=== PATIENT | male | born 1955 | race Caucasian/White ===

== ENCOUNTER 2023-08-12 10:36 | Emergency (ER) | payer MEDICARE, SELFPAY ==
[2023-08-12 10:45] VITALS: BP 144/70; PULSE 63; RESP 16; TEMP 36.3; O2SAT 98; BMI 23.1
--- NOTE | 2023-08-12 11:12 | ED.SKABFB ---
HPI - Skin/Abscess/Foreign Bdy General Chief complaint: Skin/Abscess/Foreign Body Stated complaint: back pain Time Seen by Provider: 08/12/23 11:04 Source: patient Mode of arrival: Ambulatory Limitations: no limitations History of Present Illness HPI narrative: Patient is an otherwise healthy. Is here for evaluation of redness and rash to his right flank region. The rash started within the past 12 hours. He started to have discomfort within the past 24-36 hours. No fevers. Related Data Previous Rx's Medication Instructions Recorded acyclovir 800 mg tablet 800 mg PO 5XD 10 days #50 tabs 08/12/23 hydrocodone 5 mg-acetaminophen 325 1 tab PO Q4-6H PRN pain #10 tabs 08/12/23 mg tablet Review of Systems Constitutional Constitutional: Reports system reviewed and no additional complaints, except as documented Musculoskeletal Musculoskeletal: Reports system reviewed and no additional complaints, except as documented Integumentary/Breasts Skin/Breast: Reports system reviewed and no additional complaints, except as documented Neurologic Neurologic: Reports system reviewed and no additional complaints, except as documented Exam Initial Vital Signs Initial Vital Signs: Vital Signs Temperature 97.4 F L 08/12/23 10:45 Pulse Rate 63 08/12/23 10:45 Respiratory Rate 16 08/12/23 10:45 Blood Pressure 144/70 H 08/12/23 10:45 Pulse Oximetry 98 08/12/23 10:45 Oxygen Delivery Method Room Air 08/12/23 10:45 HENMT Head: normal to inspection and normocephalic Skin Other: Patient with rash on his lower back and right flank that is consistent with shingles. Does have some erythema and then also clumping of vesicles. Neuro General: patient alert and patient awake Course Vital Signs Vital signs: Vital Signs - 8 hr 08/12/23 10:45 Temperature 97.4 F L Pulse Rate 63 Respiratory Rate 16 Blood Pressure 144/70 H Pulse Oximetry 98 Oxygen Delivery Method Room Air MDM - Skin/Abscess/Foreign Bdy MDM Narrative Medical decision making narrative: History and physical today is consistent with zoster. Does not appear to be a superinfection. Symptoms started within the past 36 hours. Will treat with acyclovir. He was given return precautions and follow-up instructions. He expressed understanding and agreement. Discharge Plan Departure Patient Disposition: Home Clinical Impression: Shingles Instructions: DI for Shingles Activity Restrictions/Additional Instructions: I do recommend that you continue to take all of your medications as directed. Take the new medications that you were prescribed today as directed. Be sure that you are keeping the rash covered like we discussed into your no longer forming new blisters. Contact your primary doctor for a follow-up. Return to the emergency department for new symptoms. Prescriptions: New acyclovir 800 mg tablet 800 mg PO 5XD 10 Days Qty: 50 0RF Rx Instructions: space evenly during waking hours hydrocodone-acetaminophen 5-325 mg tablet 1 tab PO Q4-6H PRN (Reason: pain) Qty: 10 0RF Stand Alone Forms: Patient Portal/API
== END 2023-08-12 11:21 | disposition home or self-care (01) ==
PROVIDERS: Emergency Provider Emergency Medicine
DX: B02.9 Zoster without complications (principal)
CPT/HCPCS: 99281; 99283

== ENCOUNTER → 2024-10-20 15:19 | Outpatient (CLI) | payer MEDICARE, SELFPAY ==
--- NOTE | 2024-10-20 15:22 | DI.RAD.S_ITS ---
PROCEDURE: XR CERVICAL SPINE 2V OR 3V INDICATIONS: Cervicalgia TECHNIQUE: 3 view(s) of the cervical spine were acquired. COMPARISON: None. FINDINGS: Bones: No fractures or dislocations to the T1 level. The lateral masses of C1 appear intact on the odontoid view. There is mild C5-6 intervertebral disc space loss with associated anterior osteophytosis. No suspicious bony lesions. Soft tissues: No prevertebral soft tissue swelling. IMPRESSION: Mild degenerative change, most notably at the C5-6 level, without evidence of acute osseous abnormality. Dictated by: Rodolfo Douglass M.D. on 10/20/2024 at 23:06 Approved by: Rodolfo Douglass M.D. on 10/20/2024 at 23:07
== END ==
PROVIDERS: PCP Family Medicine; Referring Provider Family Medicine; Visit Provider Family Medicine
DX: M54.2 Cervicalgia (principal); M47.812 Spondylosis without myelopathy or radiculopathy, cervical region
CPT/HCPCS: 72040

== ENCOUNTER 2025-03-31 06:03 | Day surgery (SDC) | payer MEDICARE, SELFPAY ==
[2025-03-26 08:32] VITALS: BMI 21.7
[2025-03-31] VITALS (16 sets, daily range): BP systolic 110–156; BP diastolic 55–80; PULSE 57–97; RESP 12–20; TEMP 36.1–36.7; O2SAT 94–99; BMI 21.5
--- NOTE | 2025-03-31 | PATH_ITS ---
[facility] Accession Number: [id number] No. of containers..01 Tissue . 01 Material submitted: . prostate - PROSTATE CHIPS . 01 Diagnosis: PROSTATE CHIPS, (7 GRAMS), TRANSURETHRAL RESECTION: Benign prostatic hyperplasia. Negative for invasive malignancy. [facility] [place] 1100 Local . 01 Electronically signed: . Rita Brown DO, Pathologist NPI- [id number] . 01 Gross description: . Received in formalin with two identifiers and prostate chips, are multiple mccall soft tissue fragments admixed with a moderate amount of hemorrhagic material weighing 7 grams and aggregating to 5.5 x 5.3 x 1.5 cm. Submitted entirely in cassettes A1-A5. ([id number]) /BRIGIDO 04/09/2025 1048 Local . 01 Pathologist provided ICD-10: N40.1 . 01 CPT . 420695 Specimen Comment: A courtesy copy of this report has been sent to [facility] Performed at: [address] [address], [place], [place] [id number] MD John Henry MD Phone: [phone]
[2025-03-31] MEDS: LACTATED RINGERS 1,000 ML 21 ML IV ×2 (06:58→09:02)
--- NOTE | 2025-03-31 07:36 | PM.PREOP ---
Pre-operative Note COVID-19 COVID-19 status: Not tested Interval Note History & Physical reviewed/Exam performed by Physician: Yes Changes to H&P: No
[2025-03-31] MEDS: levoFLOXacin 500 MG/100 ML PIGGYBACK 100 MG IV (07:51)
--- NOTE | 2025-03-31 08:16 | SUR.OPER ---
Lithotomy on padded OR bed, head on pillow, arms secured on padded arm boards at <90 degrees abduction. Legs secured in padded yellow fins stirrups.
[2025-03-31] MEDS: FLEETS ENEMA 2 EACH PR (08:42)
--- NOTE | 2025-03-31 09:55 | P.OP_ITS ---
Operative Date/Time/Diagnoses Date of procedure: 03/31/25 Time of procedure: 08:00 Pre-op diagnosis: Benign prostatic hyperplasia with lower urinary tract symptoms, urinary retention Post-op diagnosis: same Procedure & Clinicians Procedure: Cystoscopy Aquablation Same procedure(s) as scheduled: Yes Indications: 69 y/o M noted to have urinary retention that is currently managed with CIC four times per day following placement of a bates catheter with nearly 3L of clear yellow urine drainage. Discussed treatment options moving forward to include placement of a bates catheter with voiding trials every month, continuing with CIC and attempts at volitional voiding between each catheterization, placement of a SPT (not recommended until we establish that he is not able to void spontaneously for several months) or standard treatments of BPH. Discussed a trial of alpha blockers. Discussed mechanism of action and expected side effects to include orthostatic hypotension, nasal congestion and retrograde ejaculation. Also discussed the possible addition of Finasteride 5mg daily (discussed possible side effects to include decreased libido, worsening erectile dysfunction, loss of ejaculate volume as well as painful breast development or nipple tenderness), or a lower urinary tract evaluation prior to a bladder outlet procedure. His cystoscopy and TRUS prostate were notable for coaptating lateral prostatic lobes w/o an intravesical median lobe and a TRUS volume of 58 cc. He was unable to perform a Uroflow/PVR secondary to continued urinary retention. Discussed that he otherwise would be a candidate for Aquablation. Discussed risks of the procedure to include but not limited to pain, bleeding, infection, injury to urethra/bladder/either ureteral orifice, clot retention, irritative voiding symptoms for several months following the procedure, urinary incontinence, erectile dysfunction, retrograde ejaculation, need for open emergent repair of any bladder or ureteral injuries, urethral stricture or bladder neck contracture development, need for repeat procedures. Surgeon: Clive Shah Click Yes if Unassisted: Yes Anesthesia Type: General Operative Notes Findings: Coaptating lateral prostatic lobes, no intravesical median lobe Closure Type: not applicable Specimen(s): other (prostate chips) Applied: catheter Estimated Blood Loss (mL): 50 Blood products transfused: none Procedure in detail: After informed consent was obtained, the patient was identified brought to the operating room where he was placed in his supine position on the table.? Once there anesthesia was induced and maintained.? Ensuring an adequate level of anesthesia the patient was transitioned to the lithotomy position where after time-out he was prepped.? After prepping, ensuring an adequate level of anesthesia, administration IV antibiotics and time-out 60 cc of ultrasound gel was instilled within the rectum and the ultrasound probe which had been attached to the TRUS stepper which was attached to the TRUS stepper articulating arm which was secured to the bed was advanced into the rectum under direct vision via the ultrasound.? The ultrasound probe was then aligned and confirmation made that the prostate was centered and aligned in both the sagittal and transverse views.? The bladder neck, verumontanum, central and transitional zones were identified.? With the ultrasound in place and adjusted the patient was then d raped in a sterile fashion. With the patient draped the 24 Guyanese aqua beam handpiece was then inserted through the urethra and advanced into the bladder.? Cystoscopy was then performed and no concerning bladder mass or lesions were noted.? Bilateral ureteral orifices were noted to be orthotopic in nature.? As the cystoscope was advanced the level of the sphincter, verumontanum, bladder neck were all identified via ultrasound and under direct vision.? The aqua beam hand place was then secured to the handpiece articulating arm which had been secured to the bed.? The Aquablation handpiece and TRUS probe were confirmed to be parallel and colinear.? Confirmation was then made that the aqua beam handpiece and nozzle was centered and anterior to the bladder neck.? The cystoscope was then retrac naseem under direct vision in the sphincter and verumontanum were identified.? The tip of the cystoscope was then placed proximal to the external sphincter.? Compression was applied with the TRUS probe to the prostate.? The alignment of the TRUS probe and aqua beam handpiece was once again confirmed.? Horizontal alignment of the handpiece water jet was then performed.? With these adjustments made, the treatment zones were then planned using real-time ultrasound.? In the largest transverse view of the prostate the depth and radial angles were determined and set again in the transverse view of the prostate.? In the longitudinal and sagittal view the Aquablation nozzle was identified and its position registered with the software and robot.? The treatment contours were then determined and adjusted to reflect the intended margins of resection.? Following our plan confirmation, the Aquablation resection treatment was started.? A 2nd pass was then completed in similar fashion after the 1st pass had been completed.? At this point, the Aqua hand piece was removed from the urethra. The 26Fr resectoscope was then inserted into the urethra and cystoscopy was repeated.? The Elik material manager was utilized to evacuate the blood clots from the bladder.? The bladder neck was then resected using the bipolar Gyrus loop.? Bilateral ureteral orifices were again identified and noted to be intact at case end.? Hemostasis was obtained and noted to be excellent at case end.? The resectoscope was then removed and a 24Fr Maryann 3-way hematuria catheter was inserted through the urethra and into the bladder.? 45cc of sterile water was utilized for balloon insufflation.? Efflux was noted to be clear at case end.? Anesthesia was reversed, he was extubated in the OR and transferred to the PACU in stable condition for recovery. Complications: none Post-operative Condition: stable Disposition: PACU Plan for aftercare: Will continue to run CBI for a few hours to evaluate the efflux from his catheter.? Should it remain relatively clear and with minimal blood clots, will discharge home with catheter in place and have him return to Urology clinic in 2 days for a voiding trial.? Should his efflux remain red or have significant clot burden, will admit overnight for observation and continued CBI.
--- NOTE | 2025-03-31 11:56 | SUR.PHASEII ---
Pt CBI turned down to slow trickle at 1130. Large clot passed into f/c bag, blocking the drainage port. Attempted to manually displace or manipulate clot from drainage port without success. Leg bag changed with help of JANINA Colon. F/c now draining appropriately without disruption in stream.
[2025-03-31] MEDS: BENZOCAINE/MENTHOL 1 LOZ PKT 1 EACH PO (12:04)
--- NOTE | 2025-03-31 13:49 | SUR.PHASEII ---
Pt continues to pass large clots despite CBI draining wide open. Dr. Shah at bedside again. F/c drainage bag changed and catheter irrigated. Per Dr. Shah, pt will go back to OR. New consent obtained and in pt's chart. notified. Questions encouraged and answered.
--- NOTE | 2025-03-31 14:18 | PM.PREOP ---
Pre-operative Note COVID-19 COVID-19 status: Not tested Interval Note History & Physical reviewed/Exam performed by Physician: Yes Changes to H&P: Yes H&P completed within 30 days and has changed as indicated here:: 69 y/o M w/ BPH and LUTS that led to urinary retention requiring CIC. He ultimately opted for surgical management via an Aquablation procedure. Postoperatively, he was noted to have continuous brisk bleeding and was clotting off his catheter despite being on maximally wide open irrigation, therefore, he was consented for a cystoscopy and clot evacuation. Discussed risks of the procedure to include but not limited to pain, bleeding, infection, injury to urethra/bladder/either ureteral orifice, clot retention, irritative voiding symptoms for several months following the procedure, urinary incontinence, erectile dysfunction, retrograde ejaculation, need for open emergent repair of any bladder or ureteral injuries, urethral stricture or bladder neck contracture development, need for repeat procedures.
--- NOTE | 2025-03-31 15:19 | SUR.OPER ---
Lithotomy on padded OR bed, head on pillow, arms secured on padded arm boards at <90 degrees abduction. Legs secured in padded yellow fins stirrups.
--- NOTE | 2025-03-31 16:30 | PM.OP.1 ---
Operative Date/Time/Diagnoses Date of procedure: 03/31/25 Time of procedure: 15:00 Pre-op diagnosis: Clot retention Post-op diagnosis: same Procedure & Clinicians Procedure: Cystoscopy Clot evacuation Same procedure(s) as scheduled: Yes Indications: 69 y/o M w/ BPH and LUTS that led to urinary retention requiring CIC. He ultimately opted for surgical management via an Aquablation procedure. Postoperatively, he was noted to have continuous brisk bleeding and was clotting off his catheter despite being on maximally wide open irrigation, therefore, he was consented for a cystoscopy and clot evacuation. Discussed risks of the procedure to include but not limited to pain, bleeding, infection, injury to urethra/bladder/either ureteral orifice, clot retention, irritative voiding symptoms for several months following the procedure, urinary incontinence, erectile dysfunction, retrograde ejaculation, need for open emergent repair of any bladder or ureteral injuries, urethral stricture or bladder neck contracture development, need for repeat procedures. Surgeon: Clive Shah Click Yes if Unassisted: Yes Anesthesia Type: General Operative Notes Findings: 200cc of clot within his bladder, active bleeding from anterior prostate Closure Type: not applicable Specimen(s): none sent Applied: catheter Estimated Blood Loss (mL): 200 Blood products transfused: none Procedure in detail: Patient was identified in the preoperative holding area and consent confirmed. He was then brought to the operating room where general anesthesia was induced. He was then placed in the low lithotomy position. He was then prepped and draped in the usual sterile fashion. A surgical timeout was conducted and all were in agreement. Access to the bladder was obtained via a 21Fr cystoscope. Complete cystoscopy was then performed using a 30 lens. A very large organized clot was appreciated within his bladder lumen and clot was appreciated on virtually every surface of his prostate. The cystoscope was then removed and the 26Fr resectoscope was advanced through his urethra and into his bladder. Using a 60cc Tumi syringe, the clot was manually evacuated. The bladder was then inspected and bilateral ureteral orifice were easily visualized and noted to be orthotopic in nature. The prostatic edges were then evaluated and all clot was manually evacuated. An active bleed was appreciated on the anterior surface of the prostate, this was extensively cauterized. Hemostasis was evaluated and noted to be excellent at case end. A 24Fr 3-way hematuria catheter was then inserted into his bladder, 45cc of sterile water was utilized for balloon insufflation. Continuous bladder irrigation was then initiated and it was noted to be clear. Anesthesia was reversed, he was extubated in the OR and transferred to the PACU in stable condition for recovery. Complications: none Post-operative Condition: stable Disposition: PACU Plan for aftercare: Will continue to run CBI for a few hours to evaluate the efflux from his catheter.? Should it remain relatively clear and with minimal blood clots, will discharge home with catheter in place and have him return to Urology clinic in 2 days for a voiding trial.? Should his efflux remain red or have significant clot burden, will admit overnight for observation and continued CBI.
== END 2025-03-31 18:28 | disposition home or self-care (01) ==
PROVIDERS: PCP Family Medicine; Referring Provider Urology; Visit Provider Urology
PROC: 0VT08ZZ Resection of Prostate, Via Natural or Artificial Opening Endoscopic (ICD-10-PCS; CPT 0421T; principal; 2025-03-31 07:45)
PROC: (CPT 0421T; principal; 2025-03-31 14:00)
DX: N40.1 Benign prostatic hyperplasia with lower urinary tract symptoms (principal); R33.9 Retention of urine, unspecified; N99.820 Postprocedural hemorrhage of a genitourinary system organ or structure following a genitourinary system procedure; Y83.8 Other surgical procedures as the cause of abnormal reaction of the patient, or of later complication, without mention of misadventure at the time of the procedure; Y92.234 Operating room of hospital as the place of occurrence of the external cause
CPT/HCPCS: 0421T; 52001; C2596; J0330; J1100; J1956; J2405; J2704; J3010

== ENCOUNTER → 2025-05-15 14:28 | Outpatient (CLI) | payer MEDICARE, SELFPAY | PROVIDERS: PCP Family Medicine; Visit Provider Urology | DX: R33.9 Retention of urine, unspecified (principal) | CPT/HCPCS: 87077; 87086; 87186 ==